=== PATIENT | female | born 1950 | race Caucasian/White ===

== ENCOUNTER 2019-09-11 12:01 | Inpatient (IN) ==
--- NOTE | 2019-09-11 12:37 | Emergency Department Note ---
Impression & Plan V-tach, Synovial cyst of popliteal space [Bailey], right knee, Edema leg, Acute wrist pain ED Provider Note NAME: LUI BLANKENSHIP AGE: 69 SEX: F : 1950 ARRIVES VIA: Walk-In INFORMANT: Patient ED PROVIDER(S): Quentin Arnold DO CHIEF COMPLAINT: Patient was sent in for positive d-dimer HPI: Patient is a 69-year-old female who has recent history of about 6 weeks of pain in her right wrist with swelling. She has had no redness. The swelling has not worsened recently. Pain is fairly consistent. She notes that recently over the past week she has had swelling in her right lower extremity. She has pain behind her right knee. She was evaluated by her PCP and orthopedics. She had a duplex of her left lower extremity which was negative but they found a popliteal cyst. She had blood work although she has had no chest pain or shortness of breath and they obtained a d-dimer. This came back positive. She was sent into the ER with positive d-dimer by her primary care provider Zoey. Patient denies any chest pain or shortness of breath. She has no shortness of breath with laying flat. She has had swelling on the right side of her leg. Pain is worse with movement and putting weight on it in the posterior aspect of her knee. Right hand has been consistently painful since this initially started 6 weeks ago. Denies any trauma. No fevers. No redness. No tick bites. They note she has been tested for Lyme's disease and was negative. She was recently placed on doxycycline yesterday for prophylaxis treatment for Lyme disease. ROS: See above HPI for pertinent positives & negatives. A total of 10 systems reviewed and were otherwise negative. PAST MEDICAL HISTORY:See Below PAST SURGICAL HISTORY:See Below FAMILY HISTORY:See Below SOCIAL HISTORY:See Below HOME MEDICATIONS:See Below ALLERGIES:See Below VITALS:See Below PHYSICAL EXAMINATION: GENERAL: Sitting up in bed, alert, well appearing, well nourished, no distress, non-toxic EYE EXAM: normal conjunctiva. OROPHARYNX: no exudate, no erythema, lips, buccal mucosa, and tongue normal and mucous membranes are moist NECK: supple, no nuchal rigidity, no adenopathy, non-tender LUNGS: Clear to auscultation. Normal chest wall mechanics HEART: no murmurs, S1 normal and S2 normal ABDOMEN: abdomen soft, non-tender, normo-active bowel sounds, no masses, no rebound or guarding. BACK: Back is symmetrical on inspection and there is no deformity, no midline tenderness, no CVA tenderness. SKIN: no rashes and no bruising UPPER EXTREMITIES: Full active and passive range of motion of the shoulders elbows and wrists. She has limited range of motion of the right wrist with tenderness palpation over the palmar and dorsal aspect tracking up into the thumb. There is no surrounding redness. Radial pulse 2 out of 4. Mild swelling over the left second and third MCPs. No redness. LOWER EXTREMITIES: Mild pitting edema in the right lower extremity. Right calf larger than left. Pain on palpation of the popliteal fossa. DPs 2 out of 4. Full active and passive range of motion of bilateral hips knees and ankles. No redness. No prepatellar swelling. NEURO EXAM: Normal sensorium, cranial nerves II-XII grossly intact, normal speech, no gross weakness of arms, no gross weakness of legs. MEDICAL DECISION MAKING: Patient is a 69-year-old female who presents the ER for swelling in her right lower extremity associated with a positive d-dimer sent in by her PCP. She recently has had swelling of the right lower extremity since this past Tuesday. Duplex of the right lower extremity was negative for DVT but positive for popliteal cyst. Followed up with orthopedics. Negative Lyme test x2 in the past month. She is been worked up extensively and has a negative DEMARCUS test and a rheumatoid factor. IV was established blood work was obtained. She denies any chest pain or shortness of breath. Labs show a mild leukocytosis of 1.2 thousand. No significant anemia. INR unremarkable. BMP with LFTs bilirubin and troponin was negative. Lipase was normal. EKG with no acute ischemia. Negative CT Jyoti of the chest with her positive d-dimer as an outpatient. She has no chest pain or shortness of breath. While she was on the monitor she had a short run of VT with [address] Luis Armando Loevtt who recommended admission and echo. Patient was otherwise asymptomatic. Held on any antiarrhythmics. Updated bedside discussed with the hospitalist for admission. Ultrasound was negative with exception of a ruptured popliteal cyst. Lyme was negative x2 this month. Rheumatoid factor was negative. DEMARCUS was negative. Whi te counts have been unchanged. Triage Nursing notes reviewed. Prior medical records reviewed Vital Signs: reviewed and remarkable for no significant abnormalities Differential diagnosis: DVT, musculoskeletal, infection, joint effusion, trauma, lymphedema, idiopathic, CHF, as well as other pathologies. ER treatment provided: See below Diagnostics interpreted by me: ECG: Sinus rhythm rate of 59 Normal axis No PVCs Normal QTC T waves are elevated in V2 V3 T waves are slightly changed in comparison to old performed on of this month. Cardiac Monitoring: An order was placed for continuous cardiac monitoring. The monitor shows a rate of 67 with sinus rhythm. Laboratory studies: As stated above and show below. Imaging studies: CT Angio of the chest was negative. Consultation(s): Discussed with Dr. Luis Armando hardy from cardiology who recommends further evaluation as an inpatient Discussed with Dr. Andria Kumar for observation. ED COURSE: Procedures: none Critical Care: None Past Med/Surg History Medical History (Updated 09/11/19 @ 16:16 by Quentin Arnold DO) No pertinent past medical history Osteoarthritis Osteopenia Surgical History No pertinent past surgical history Social History Smoking Status: Former smoker Tobacco Type: Cigarettes Feels Safe at Home: Yes Allergies Allergies Allergy/AdvReac Type Severity Reaction Status Date / Time No Known Allergies Allergy Unverified 09/11/19 13:00 Home Meds Home Medications Medication Instructions Recorded Confirmed doxycycline monohydrate 100 mg PO BID 09/11/19 09/11/19 Results & Data (ED) Vital Signs Vital Signs - 24 hr 09/11/19 12:08 09/11/19 12:40 09/11/19 12:48 Temperature 37.0 C Temperature Source Oral Pulse Rate 68 63 61 Pulse Rate from SpO2 Sensor 64 61 Respiratory Rate 20 14 13 Respiratory Effort / Characteristics Non-Labored Respiratory Depth Normal Blood Pressure 120/65 126/70 Blood Pressure Mean 83 80 Pulse Oximetry 96 97 96 Oxygen Delivery Method Room Air Room Air Room Air Sepsis Recent Fever Within 48 Hours No Sepsis New/Unexplained Change in Mental Status N/A Sepsis Action Taken by Nursing No Action Required 09/11/19 12:50 09/11/19 13:00 09/11/19 13:01 Temperature Temperature Source Pulse Rate 59 L 62 61 Pulse Rate from SpO2 Sensor 59 L 64 62 Respiratory Rate 13 17 12 Respiratory Effort / Characteristics Respiratory Depth Blood Pressure 127/59 L Blood Pressure Mean 70 Pulse Oximetry 96 97 97 Oxygen Delivery Method Room Air Room Air Room Air Sepsis Recent Fever Within 48 Hours Sepsis New/Unexplained Change in Mental Status Sepsis Action Taken by Nursing 09/11/19 13:10 09/11/19 13:20 09/11/19 13:30 Temperature Temperature Source Pulse Rate 59 L 65 74 Pulse Rate from SpO2 Sensor 61 67 64 Respiratory Rate 16 17 17 Respiratory Effort / Characteristics Respiratory Depth Blood Pressure 144/80 H Blood Pressure Mean 96 Pulse Oximetry 98 97 97 Oxygen Delivery Method Room Air Room Air Room Air Sepsis Recent Fever Within 48 Hours Sepsis New/Unexplained Change in Mental Status Sepsis Action Taken by Nursing 09/11/19 13:31 09/11/19 13:54 09/11/19 14:00 Temperature Temperature Source Pulse Rate 62 131 H 69 Pulse Rate from SpO2 Sensor 62 87 67 Respiratory Rate 17 22 17 Respiratory Effort / Characteristics Respiratory Depth Blood Pressure Blood Pressure Mean Pulse Oximetry 97 96 97 Oxygen Delivery Method Room Air Room Air Room Air Sepsis Recent Fever Within 48 Hours Sepsis New/Unexplained Change in Mental Status Sepsis Action Taken by Nursing 09/11/19 14:01 09/11/19 14:10 09/11/19 14:20 Temperature Temperature Source Pulse Rate 74 66 64 Pulse Rate from SpO2 Sensor 68 64 64 Respiratory Rate 14 23 10 L Respiratory Effort / Characteristics Respiratory Depth Blood Pressure 107/68 Blood Pressure Mean 76 Pulse Oximetry 97 98 97 Oxygen Delivery Method Room Air Room Air Room Air Sepsis Recent Fever Within 48 Hours Sepsis New/Unexplained Change in Mental Status Sepsis Action Taken by Nursing 09/11/19 14:30 09/11/19 14:32 09/11/19 14:33 Temperature Temperature Source Pulse Rate 65 60 Pulse Rate from SpO2 Sensor 61 60 64 Respiratory Rate 19 14 22 Respiratory Effort / Characteristics Respiratory Depth Blood Pressure 154/76 H Blood Pressure Mean 100 Pulse Oximetry 98 98 96 Oxygen Delivery Method Room Air Room Air Room Air Sepsis Recent Fever Within 48 Hours Sepsis New/Unexplained Change in Mental Status Sepsis Action Taken by Nursing 09/11/19 14:40 09/11/19 14:50 09/11/19 15:00 Temperature Temperature Source Pulse Rate 63 63 62 Pulse Rate from SpO2 Sensor 63 64 62 Respiratory Rate 16 12 16 Respiratory Effort / Characteristics Respiratory Depth Blood Pressure Blood Pressure Mean Pulse Oximetry 98 98 98 Oxygen Delivery Method Room Air Room Air Room Air Sepsis Recent Fever Within 48 Hours Sepsis New/Unexplained Change in Mental Status Sepsis Action Taken by Nursing 09/11/19 15:01 09/11/19 15:10 Temperature Temperature Source Pulse Rate 73 62 Pulse Rate from SpO2 Sensor 63 61 Respiratory Rate 18 15 Respiratory Effort / Characteristics Respiratory Depth Blood Pressure 150/53 H Blood Pressure Mean 101 Pulse Oximetry 97 97 Oxygen Delivery Method Room Air Room Air Sepsis Recent Fever Within 48 Hours Sepsis New/Unexplained Change in Mental Status Sepsis Action Taken by Nursing Laboratory Data Result diagrams: 09/11/19 12:38 09/11/19 12:38 Lab Results 09/11/19 09/11/19 09/11/19 Range/Units 12:38 12:38 12:38 WBC 11.24 H (4.8-10.8) K/uL RBC 4.29 (4.2-5.4) M/uL Hgb 12.6 (12.0-16.0) g/dL Hct 37.1 (37-47) % MCV 86.5 (80-100) fL MCH 29.4 (25-34) pg MCHC 34.0 (32-36) g/dL RDW Std Deviation 41.7 (36.4-46.3) fL RDW Coeff of Steffanie 13.2 (11.5-14.5) % Plt Count 287 (130-400) K/uL MPV 8.9 (7.4-10.4) fL Immature Gran % (Auto) 0.2 % Neut % (Auto) 79.4 % Lymph % (Auto) 11.0 % Pacific % (Auto) 9.1 % Eos % (Auto) 0.3 % Baso % (Auto) 0.0 % Neut # (Auto) 8.93 H (1.4-6.5) K/uL Lymph # (Auto) 1.24 (1.2-3.4) K/uL Pacific # (Auto) 1.02 H (0.11-0.59) K/uL Eos # (Auto) 0.03 (0-0.5) K/uL Baso # (Auto) 0.00 (0-0.2) K/uL Immature Gran # (Auto) 0.02 (0.00-0.02) K/uL PT 10.4 (9.0-12.0) Seconds INR 1.0 (0.9-1.1) APTT 28.2 (21.0-31.0) Seconds PTT Ratio 1.0 Sodium 136 (136-145) mmol/L Potassium 4.2 (3.5-5.1) mmol/L Chloride 105 (98-107) mmol/L Carbon Dioxide 23 (21-32) mmol/L Anion Gap 8.0 (3-11) BUN 11 (7-18) mg/dl Creatinine 0.76 (0.6-1.2) mg/dl Est Cr Clr Drug Dosing 73.0 ml/min Est GFR ( Amer) 94.1 Est GFR (Non-Af Amer) 81.2 BUN/Creatinine Ratio 13.8 (10-20) Glucose 101 H (70-99) mg/dl Calcium 9.0 (8.5-10.1) mg/dl Total Bilirubin 0.4 (0.2-1) mg/dl AST 11 L (15-37) U/L ALT 15 (12-78) U/L Alkaline Phosphatase 83 (45-117) U/L Troponin I < 0.015 (0-0.045) ng/ml Total Protein 6.9 (6.4-8.2) gm/dl Albumin 2.7 L (3.4-5.0) gm/dl Globulin 4.2 H (2.5-4.0) gm/dl Albumin/Globulin Ratio 0.6 L (0.9-2) Lipase 70 L (73-393) U/L Administered Medications Ioversol (Optiray 320 125ml) 120 ml IV ONCE PRN PRN Reason: Interaction Checking Stop: 09/15/19 13:43 Last Admin: 09/11/19 13:44 Dose: 120 ml Documented by: [id number] Discontinued Medications Sodium Chloride (Nss) 500 mls @ 999 mls/hr IV .Q31M DARLINE Stop: 09/11/19 13:15 Last Infusion: 09/11/19 13:24 Dose: 0 mls/hr Documented by: [id number] Admin: 09/11/19 12:43 Dose: 999 mls/hr Documented by: [id number] Discharge Plan Visit Data Chief Complaint: Swelling/Edema to Extremity Stated Complaint: SWELLING IN RT LEG,JOINT SWEELING IN WRIST ED Provider: Quentin Arnold Discharge Problem: V-tach, Synovial cyst of popliteal space [Bailey], right knee, Edema leg, Acute wrist pain Forms Stand Alone Forms: [facility] K[facility] Prescriptions Prescriptions: No Action doxycycline monohydrate 100 mg capsule 100 mg PO BID RF: 0 Discharge Problem: Acute wrist pain Qualifiers: Laterality: bilateral Qualified Code(s): M25.531 - Pain in right wrist
[2019-09-11] MEDS ORDERED: SODIUM CHLORIDE 0.9% 500 ML IV SCH (12:45)
[2019-09-11 12:53] LABS: Eosinophils # (auto) 0.03 K/uL (0-0.5); Eosinophils % (auto) 0.3 %; Hematocrit (blood only) 37.1 % (37-47); Hemoglobin 12.6 g/dL (12.0-16.0); Immature Granulocytes # (auto) 0.02 K/uL (0.00-0.02); Immature Granulocytes % (auto) 0.2 %; Lymphocytes # (auto) 1.24 K/uL (1.2-3.4); Mean Corpuscular Hemoglobin 29.4 pg (25-34); Mean Corpuscular Volume 86.5 fL (80-100); Mean Platelet Volume 8.9 fL (7.4-10.4); Monocytes # (auto) 1.02 K/uL (0.11-0.59); Monocytes % (auto) 9.1 %; Neutrophils # (auto) 8.93 K/uL (1.4-6.5); Neutrophils % (auto) 79.4 %; Platelet Count 287 K/uL (130-400); RDW Coefficient of Variation 13.2 % (11.5-14.5); RDW Standard Deviation 41.7 fL (36.4-46.3); Red Blood Count 4.29 M/uL (4.2-5.4); White Blood Count 11.24 K/uL (4.8-10.8)
[2019-09-11 13:10] LABS: Partial Thromboplastin Time 28.2 Seconds (21.0-31.0); Prothrombin Time 10.4 Seconds (9.0-12.0)
[2019-09-11 13:12] LABS: Alanine Aminotransferase 15 U/L (12-78); Albumin Level 2.7 gm/dl (3.4-5.0); Aspartate Aminotransferase 11 U/L (15-37); BUN Creatinine Ratio 13.8 (10-20); Blood Urea Nitrogen 11 mg/dl (7-18); Carbon Dioxide 23 mmol/L (21-32); Chloride 105 mmol/L (98-107); Est GFR (African American) 94.1; Est GFR (Non-African American) 81.2; Glucose 101 mg/dl (70-99); Lipase 70 U/L (73-393); Potassium 4.2 mmol/L (3.5-5.1); Sodium 136 mmol/L (136-145)
[2019-09-11 13:17] LABS: Albumin Globulin Ratio 0.6 (0.9-2); Alkaline Phosphatase 83 U/L (45-117); Bilirubin,Total 0.4 mg/dl (0.2-1); Globulin 4.2 gm/dl (2.5-4.0); Total Protein 6.9 gm/dl (6.4-8.2); Troponin I < 0.015 ng/ml (0-0.045)
[2019-09-11] MEDS ORDERED: OPTIRAY 320 125ml IV PRN (13:44)
--- NOTE | 2019-09-11 13:59 | CT Scan Report ---
CT angio chest PE protocol CT DOSE: 550.30 mGycm HISTORY: 69 years-old Female with Chest Pain, eval for PE. Acute chest pain with shortness of breat h TECHNIQUE: Multiple CTA images of the chest were obtained after the intravenous administration of 120 ml Optiray 320. Coronal and sagittal MIPS were obtained from the axial data set and were submitted for review. All measurements were obtained according to NASCET criteria. A dose lowering technique w as utilized adhering to the principles of ALARA. COMPARISON: Chest radiograph 08/28/2019 FINDINGS: CTA: The heart is normal in size. No pericardial effusion. There is no thoracic aortic aneurysm or dissect ion. Patency of the imaged great vessels. There is reflux of contrast into the IVC and hepatic veins. The pulmonary arterial tree is opacified to the level of the segmental branches and demonstrates no defects to suggest thromboembolic disease. CT CHEST: The thyroid is heterogeneous. Mild enlargement of the left thyroid lobe. There are prominent right ax illary chain lymph nodes measuring up to 1.4 x 0.9 cm. No pathologically enlarged lymph nodes by CT s ize criteria. There is no pneumothorax, pleural effusion, airspace consolidation or overt pulmonary e vik. The central airways appear patent. Small hiatal hernia. Mild thickening of the left adrenal gland. The soft tissues are unremarkable. Roscoe jessica appear intact. IMPRESSION: 1. No acute intrathoracic abnormality, specifically there is no evidence of pulmonary thromboembolic disease. 2. No pleural effusion or airspace consolidation for pneumonia. 3. Nonspecific prominent right axillary lymph nodes measures within the upper limits of normal in siz e. 4. Small hiatal hernia. ACT 112: Negative or not required by law. The above report was generated using voice recognition software. It may contain grammatical, syntax o r spelling errors. Electronically signed by: Spencer Jasmine M.D. 09/11/2019 1:58 PM
--- NOTE | 2019-09-11 15:45 | History & Physical Report ---
Date of Service September 11, 2019 Assessment & Plan (1) V-tach: Noted incidentally to have an 8 beat run of nonsustained asymptomatic V. tach while in the ER for work-up for elevated d-dimer and polyarthralgias. Lyme disease has been negative on titer 2 times the last 2 weeks She has no history of syncope or angina or signs of heart failure on examination. Troponin negative -Admit to PCU for telemetry monitoring to look for further ventricular tachycardia -Consult cardiology for further evaluation -Check echocardiogram -Consider addition of beta-mata as she has had some elevated blood pressures here -Follow BMP and check magnesium and replete electrolytes as needed (2) Cellulitis of leg, right: Right leg with swelling secondary to Bailey's cyst with some secondary cellulitis with open wounds of the right leg This likely accounts for the mild leukocytosis. No evidence of sepsis or fevers. -She just started doxycycline on 09/09 which should also help improve the cellulitis, but could consider adding on Keflex if not improving by tomorrow -Follow CBC (3) Polyarthralgia: With migratory polyarthralgia over the last 2 to 3 weeks of the wrists, hands, and knees and right foot With elevated ESR of 56 last week Rheumatoid factor negative, anti-CCP antibody negative, DEMARCUS negative, Lyme titer negative x2 She has been worked up for this as an outpatient with her PCP-would suggest referral to windows support engineer as an outpatient -Will repeat ESR and CRP here to see if worsening -Encouraged her to use low doses of NSAIDs as needed for pain and inflammation- she has been taking an occasional Advil at home Continue outpatient follow-up (4) Synovial cyst of popliteal space [Bailey], right knee: Seen by orthopedic surgeon as an outpatient on 09/09, diagnosed with Bailey's cyst with rupture Monitor for improvement, was supposed to use compression and icing NSAIDs as needed for pain (5) Edema leg: Secondary to Bailey's cyst rupture as above Compression as able to, elevation -Venous Doppler negative for DVT on 09/09 -Consider repeat venous Doppler of the right lower extremity 2 to 3 days from the first if edema not improving/or worsening (6) Elevated d-dimer: D-dimer elevated in the , likely secondary to underlying inflammatory process with her polyarthralgia Venous Doppler of the right lower extremity negative for DVT, CT angiogram negative for PE, troponin negative and no evidence of angina or clots anywhere else Nonspecific elevation (7) Axillary lymphadenopathy: Noted to have prominent nonspecific right axillary lymph nodes measuring within the upper limits of normal in size on CT angiogram of the chest -Would ensure as an outpatient that she is up-to-date on mammograms and breast exams -Follow as an outpatient (8) DVT prophylaxis: Lovenox SQ Disposition-admit for further evaluation for ventricular tachycardia as above History of Present Illness Chief Complaint: Sent in by PCP for elevated d-dimer Primary Care Provider: Antoni Sparks MD This patient is a 39-year-old female with a history of polyarthralgias for the last several weeks but otherwise healthy who presents to the ER after being advised to by her PCP for an elevated d-dimer. She began having right wrist pain and swelling approximately 2 to 3 weeks ago and since then has had migratory arthralgias and joint effusions in the right knee, left knee, and left wrist. Most recently, her right lower extremity became very swollen from the knee down and was quite tender in the medial calf. She was seen by her PCP and had a venous Doppler on 09/09 which showed a Bailey's cyst with likely leaking of the Bailey's cyst versus hematoma on the medial calf. She was seen same day by orthopedic surgeon who agreed with the assessment and prescribed her meloxicam. She apparently also had a d-dimer drawn which when it returned elevated in the today; she was advised to come to the ER for further assessment. She had a CT angiogram of the chest for PE which was negative. However, while she was here, she was noted to have an 8 beat run of nonsustained ventricular tachycardia which was asymptomatic. Patient reports she gets occasional heart palpitations, but denies chest pains or shortness of breath, no lightheadedness or passing out. She has never had any other problems from a cardiac perspective. 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 Cardiology was contacted by the ER physician who recommended bringing her in and getting an echocardiogram and for further telemetry monitoring. She has been tested for Lyme disease twice now in the last 2 weeks and both titers have been negative, however her PCP also empirically placed her on doxycycline on 09/09 of which she is taken 2 doses. She had a negative anti-CCP antibody as well as a negative rheumatoid factor and negative DEMARCUS in the last 2 weeks. All this work-up was ordered by her PCP. Her WBC count here is mildly elevated at 11 and she was also found to have a mild cellulitis of the right leg. ROS: She has not had any fevers or chills, no headaches, no nausea or vomiting or diarrhea, no abdominal pain. No urinary symptoms. She has been more fatigued t [place] usual. She had some neck pain 2 weeks ago which is now gone. Denies any other joint pains in the shoulders, elbows, hips, ankles or toes. Allergies Allergy/AdvReac Type Severity Reaction Status Date / Time No Known Allergies Allergy Unverified 09/11/19 13:00 Home Medications Home Medications Medication Instructions Recorded Confirmed Type doxycycline monohydrate 100 mg PO BID 09/11/19 09/11/19 History Past Med/Surg History Medical History No pertinent past medical history Obesity (BMI 30.0-34.9) Osteoarthritis Osteopenia Polyarthralgia (Acute) Synovial cyst of popliteal space [Bailey], right knee (Acute) Surgical History History of appendectomy History of section History of colonoscopy History of tooth extraction Family History (Updated 09/11/19 @ 16:35 by Andria Kumar MD) Mother Colorectal cancer, Onset Age: 59 Sister PAOLO (obstructive sleep apnea) Social History Smoking Status: Former smoker Tobacco Type: Cigarettes Age Quit Using Tobacco: 27; Years Smoked: 8; Cigarettes Per Day: 5; Hx Alcohol Use: No Hx Substance Use: No marital status: Current Living Situation: Spouse current occupational status: retired How many Children do You have: 2 Feels Safe at Home: Yes Review of Systems Review of Systems: All systems reviewed & are unremarkable except as noted in HPI & below Physical Exam Constitutional: WD/WN, vitals as above + overweight Eyes: PERRL, conjunctivae normal, anicteric sclerae ENMT: external ear and nose normal, oropharynx normal Neck: trachea midline, no thyromegaly Respiratory: normal respiratory effort, lungs clear to auscultation Cardiovascular: Rate/Rhythm: regular rate and regular rhythm Heart Sounds: no murmur Vessels: no JVD Extremities: + edema (Right leg with 2+ pitting edema to the knee) Chest (Breasts): Chest: normal inspection of chest Gastrointestinal (Abdomen): normal bowel sounds, soft, nontender, no hepatosplenomegaly Musculoskeletal: Extremities: + extremities abnormal to inspection (See below), no cyanosis and no clubbing Left wrist with effusion and left second and third MCP joints with effusion and mild erythema, with stiffness in the bilateral fingers with trying to form a fist. Right wrist no longer with effusion but still with pain and stiffness with range of motion Right knee and leg with significant edema and tenderness to palpation along the medial calf with bilateral small knee joint effusions Right foot and toes with edema but no sausage digits Otherwise, no tenderness to palpation and with full range of motion of bilateral shoulders and elbows, hips, and ankles Skin: + wound (A few superficial open wounds of the right anterior mid tibia) and + erythema (Mild erythema of the anterior right leg with warmth) Neurologic: moves all extremities and awake; no focal motor deficits Psychiatric: A+Ox3, euthymic affect Lymphatic: no lymphedema Results & Data Results & Data ([facility]) Vital Signs (Past 12 Hours) Vital Signs Temp Pulse Resp BP Pulse Ox 09/11/19 15:10 62 15 97 09/11/19 15:01 73 18 150/53 H 97 09/11/19 15:00 62 16 98 09/11/19 14:50 63 12 98 09/11/19 14:40 63 16 98 09/11/19 14:33 22 96 09/11/19 14:32 60 14 154/76 H 98 09/11/19 14:30 65 19 98 09/11/19 14:20 64 10 L 97 09/11/19 14:10 66 23 98 09/11/19 14:01 74 14 107/68 97 09/11/19 14:00 69 17 97 09/11/19 13:54 131 H 22 96 09/11/19 13:31 62 17 97 09/11/19 13:30 74 17 144/80 H 97 09/11/19 13:20 65 17 97 09/11/19 13:10 59 L 16 98 09/11/19 13:01 61 12 97 09/11/19 13:00 62 17 127/59 L 97 09/11/19 12:50 59 L 13 96 09/11/19 12:48 61 13 96 09/11/19 12:40 63 14 126/70 97 09/11/19 12:08 37.0 C 68 20 120/65 96 Laboratory Results 09/11/19 09/11/19 09/11/19 Range/Units 12:38 12:38 12:38 WBC 11.24 H (4.8-10.8) K/uL RBC 4.29 (4.2-5.4) M/uL Hgb 12.6 (12.0-16.0) g/dL Hct 37.1 (37-47) % MCV 86.5 (80-100) fL MCH 29.4 (25-34) pg MCHC 34.0 (32-36) g/dL RDW Std Deviation 41.7 (36.4-46.3) fL RDW Coeff of Steffanie 13.2 (11.5-14.5) % Plt Count 287 (130-400) K/uL MPV 8.9 (7.4-10.4) fL Immature Gran % (Auto) 0.2 % Neut % (Auto) 79.4 % Lymph % (Auto) 11.0 % [place] % (Auto) 9.1 % Eos % (Auto) 0.3 % Baso % (Auto) 0.0 % Neut # (Auto) 8.93 H (1.4-6.5) K/uL Lymph # (Auto) 1.24 (1.2-3.4) K/uL [place] # (Auto) 1.02 H (0.11-0.59) K/uL Eos # (Auto) 0.03 (0-0.5) K/uL Baso # (Auto) 0.00 (0-0.2) K/uL Immature Gran # (Auto) 0.02 (0.00-0.02) K/uL PT 10.4 (9.0-12.0) Seconds INR 1.0 (0.9-1.1) APTT 28.2 (21.0-31.0) Seconds PTT Ratio 1.0 Sodium 136 (136-145) mmol/L Potassium 4.2 (3.5-5.1) mmol/L Chloride 105 (98-107) mmol/L Carbon Dioxide 23 (21-32) mmol/L Anion Gap 8.0 (3-11) BUN 11 (7-18) mg/dl Creatinine 0.76 (0.6-1.2) mg/dl Est Cr Clr Drug Dosing 73.0 ml/min Est GFR ( Amer) 94.1 Est GFR (Non-Af Amer) 81.2 BUN/Creatinine Ratio 13.8 (10-20) Glucose 101 H (70-99) mg/dl Calcium 9.0 (8.5-10.1) mg/dl Total Bilirubin 0.4 (0.2-1) mg/dl AST 11 L (15-37) U/L ALT 15 (12-78) U/L Alkaline Phosphatase 83 (45-117) U/L Troponin I < 0.015 (0-0.045) ng/ml Total Protein 6.9 (6.4-8.2) gm/dl Albumin 2.7 L (3.4-5.0) gm/dl Globulin 4.2 H (2.5-4.0) gm/dl Albumin/Globulin Ratio 0.6 L (0.9-2) Lipase 70 L (73-393) U/L Diagnostic Findings CT angio chest PE protocol CT DOSE: 550.30 mGycm HISTORY: 69 years-old Female with Chest Pain, eval for PE. Acute chest pain with shortness of breath TECHNIQUE: Multiple CTA images of the chest were obtained after the intravenous administration of 120 ml Optiray 320. Coronal and sagittal MIPS were obtained from the axial data set and were submitted for review. All measurements were obtained according to NASCET criteria. A dose lowering technique was utilized adhering to the principles of ALARA. COMPARISON: Chest radiograph 08/28/2019 FINDINGS: CTA: The heart is normal in size. No pericardial effusion. There is no thoracic aortic aneurysm or dissection. Patency of the imaged great vessels. There is reflux of contrast into the IVC and hepatic veins. The pulmonary arterial tree is opacified to the level of the segmental branches and demonstrates no defects to suggest thromboembolic disease. CT CHEST: The thyroid is heterogeneous. Mild enlargement of the left thyroid lobe. There are prominent right axillary chain lymph nodes measuring up to 1.4 x 0.9 cm. No pathologically enlarged lymph nodes by CT size criteria. There is no pneumothorax, pleural effusion, airspace consolidation or overt pulmonary edema. The central airways appear patent. Small hiatal hernia. Mild thickening of the left adrenal gland. The soft tissues are unremarkable. Bones appear intact. IMPRESSION: 1. No acute intrathoracic abnormality, specifically there is no evidence of pulmonary thromboembolic disease. 2. No pleural effusion or airspace consolidation for pneumonia. 3. Nonspecific prominent right axillary lymph nodes measures within the upper limits of normal in size. 4. Small hiatal hernia. ECG Additional Comments: ECG with sinus bradycardia, rate 59, no acute ischemic changes Code Status & VTE Plan Code Status Full code VTE Prophylaxis Plan VTE Prophylaxis will be ordered: Yes PG Care Time/CCT Total # of Minutes Spent Total Time Spent with Patient: Total time spent is greater than 50% in coordination of care (as documented) at patient's floor/unit and/or counseling patient: Coding Level of Care Code 53817 Initial Inpt Care Lvl 3 Diagnoses V-tach I47.2 Cellulitis of leg, right L03.115 Polyarthralgia M25.50 Synovial cyst of popliteal space [Bailey], right knee M71.21 Edema leg R60.0 Elevated d-dimer R79.89 Axillary lymphadenopathy R59.0 DVT prophylaxis Z29.9
[2019-09-11 16:47] LABS: C Reactive Protein 9.44 mg/dl (0-0.29); Magnesium 2.1 mg/dl (1.8-2.4)
[2019-09-11] MEDS ORDERED: ACETAMINOPHEN 325 MG TAB PO PRN (17:32)
[2019-09-11] MEDS ORDERED: IBUPROFEN 200 MG TAB PO PRN (17:32)
[2019-09-11] MEDS: DOXYCYCLINE HYCLATE 100 MG CAP PO SCH (20:07)
[2019-09-11] MEDS ORDERED: ENOXAPARIN INJ 40 MG/0.4 ML SYR SQ SCH (21:00)
[2019-09-12 07:26] LABS: Basophils # (auto) 0.01 K/uL (0-0.2); Basophils % (auto) 0.1 %; Eosinophils % (auto) 1.2 %; Hematocrit (blood only) 35.5 % (37-47); Immature Granulocytes # (auto) 0.02 K/uL (0.00-0.02); Immature Granulocytes % (auto) 0.2 %; Lymphocytes # (auto) 1.37 K/uL (1.2-3.4); Lymphocytes % (auto) 16.3 %; Mean Corpuscular Hemoglobin 29.3 pg (25-34); Mean Corpuscular Hgb Conc 33.8 g/dL (32-36); Mean Corpuscular Volume 86.8 fL (80-100); Mean Platelet Volume 8.9 fL (7.4-10.4); Monocytes % (auto) 9.5 %; Neutrophils # (auto) 6.11 K/uL (1.4-6.5); Neutrophils % (auto) 72.7 %; Platelet Count 290 K/uL (130-400); RDW Standard Deviation 41.8 fL (36.4-46.3); Red Blood Count 4.09 M/uL (4.2-5.4); White Blood Count 8.41 K/uL (4.8-10.8)
[2019-09-12 07:56] LABS: Albumin Level 2.4 gm/dl (3.4-5.0); BUN Creatinine Ratio 14.5 (10-20); Calcium 8.7 mg/dl (8.5-10.1); Creatinine Clr Calc Pharmacy 74.9 ml/min; Est GFR (African American) 97.2; Est GFR (Non-African American) 83.8; Magnesium 2.1 mg/dl (1.8-2.4); Potassium 4.3 mmol/L (3.5-5.1)
[2019-09-12 07:59] LABS: Albumin Globulin Ratio 0.6 (0.9-2); Bilirubin,Total 0.4 mg/dl (0.2-1); Globulin 4.2 gm/dl (2.5-4.0); Total Protein 6.6 gm/dl (6.4-8.2)
[2019-09-12] MEDS: DOXYCYCLINE HYCLATE 100 MG CAP PO SCH (08:04)
--- NOTE | 2019-09-12 09:51 | Hospitalist Progress Note ---
Date of Service September 12, 2019 Assessment & Plan Admission and Anticipated Discharge Date Admission Date: September 11, 2019 Subjective Hx: 69 y/o F w/ no relev pmhx other than polyarthralgias last several weeks. ed told her to come in for elv d dimer. bailey cyst vs hematoma on venous doppler per pcp tested for lyme twice last 2 weeks neg Cc: vtach. Leg swelling Subj: feels fine. Multiarthralgia sx for 1 month. No hx prior Leg swelling started last . started w/ r wrist swelling. Moved to other spots in ther body. Last noted RLE started Did blood work for lyme and tick borne disease. Checked for blood. Gout was neg Cta neg Ranjit hx of any of those All ros neg. Appendix out 2 c sections Bailey cyst r popliteal fossa. Popped over wekend. R woods cellulitis appeared a day or 2 ago. Physical exam Heart lungs ok. No murmurs. Pulses ok No lad neck or axillary No abd ttp No L leg swelling R woods large area of erythema. Visibly swollen Pt says painful near R medial calf. Denies pe risk factors. he had a negative anti-CCP antibody as well as a negative rheumatoid factor and negative DEMARCUS in the last 2 weeks. All this work- up was ordered by her PCP. a/p axillary lad R on CT. outpt f/y edema of R leg elevated d dimer bailey cyst r knee. saw ortho out pt 09/09 polyarthralgia. repear esr crp. vtach. 8 bear nonsustained. no hx syndope or hx heart failure cardio consult and echo cellulitis Results & Data Results & Data ([facility]) Vital Signs (Past 12 Hours) Vital Signs Temp Pulse Pulse Resp BP Pulse Ox 09/12/19 07:18 36.5 C 71 16 124/62 95 09/12/19 03:46 36.8 C 67 20 124/64 97 09/12/19 00:00 67 09/11/19 23:19 37.0 C 79 17 125/57 L 94
--- NOTE | 2019-09-12 11:06 | XCELERA ---
[id number]
--- NOTE | 2019-09-12 11:24 | Cardiology Consultation ---
Date of Consultation September 12, 2019 Assessment & Plan (1) V-tach: She was incidentally noted to have a 7-8 beat run of nonsustained ventricular tachycardia in the ER. The telemetry strips are not currently available for review. Since her admission, she has been in normal sinus rhythm with no arrhythmia identified on telemetry. She is completely asymptomatic from a cardiovascular standpoint. Her echocardiogram shows normal LV systolic function with no significant valvular abnormality. Her electrolytes are within normal limits. No additional cardiovascular testing is indicated in this regard. If she were to need an antihypertensive agent for blood pressure control, would utilize a beta mata given the nonsustained VT. Patient discussed with Dr. Valdez. History of Present Illness Reason for Consultation: Nonsustained VT Requesting Physician: Dr. Kumar History of Present Illness Patient is a 69-year-old female with no significant past medical history who was admitted with a brief run of nonsustained ventricular tachycardia. She has been having right wrist pain and edema since late July. She then deve loped right calf pain and edema last week. She was seen by her PCP for these complaints and was ordered a right lower extremity venous duplex, which showed no evidence of a DVT, but there was a Bailey's cyst with a hypoechoic mildly complex collection consistent with leaking Bailey's cyst vs hematoma. Labs were also ordered, including an elevated d-dimer of 2560. Given the elevation of the d-dimer, it was recommended she go to the ED for further evaluation. A chest CTA was performed which showed no evidence of PE. While she was being monitored in the ER, she was noted to have a 7-8 beat run of nonsustained ventricular tachycardia. She was asymptomatic with this, but it was recommended she be admitted for further evaluation. An echocardiogram was performed earlier today, which showed normal LV size, wall motion, and systolic function with no significant valvular abnormality. Electrolytes have also been normal. She continues to note some pain/swelling in her right wrist and right calf. She now also notes some swelling and pain in her left hand/wrist. From a cardiac standpoint, she has been feeling well. She denies any chest discomfort or shortness of breath. She has not noted any palpitations. She denies lightheadedness, syncope, or near-syncope. She denies abnormal bleeding such as melena, hematochezia, or hematuria. She denies cerebrovascular symptoms. She remains fairly active doing housework and grocery shopping. She has stairs in her home which she ambulates up and down regularly with no limiting cardiopulmonary symptoms. Family history: No family history of premature CAD. Social history: She is with 2 children and 2 grandchildren. No smoking or alcohol use. Allergies Allergy/AdvReac Type Severity Reaction Status Date / Time No Known Allergies Allergy Unverified 09/11/19 13:00 Home Medications Home Medications Medication Instructions Recorded Confirmed Type doxycycline monohydrate 100 mg PO BID 09/11/19 09/11/19 History Patient History Medical History No pertinent past medical history Obesity (BMI 30.0-34.9) Osteoarthritis Osteopenia Polyarthralgia (Acute) Synovial cyst of popliteal space [Bailey], right knee (Acute) Surgical History History of appendectomy History of section History of colonoscopy History of tooth extraction Family History (Updated 09/11/19 @ 16:35 by Andria Kumar MD) Mother Colorectal cancer, Onset Age: 59 Sister PAOLO (obstructive sleep apnea) Social History Smoking Status: Never smoker Tobacco Type: Cigarettes Age Quit Using Tobacco: 27; Years Smoked: 8; Cigarettes Per Day: 5; Hx Alcohol Use: No Hx Substance Use: No Preferred Language: [place] Citizen Personnel Placement Specialist Required: No Beliefs That Will Affect Care: None marital status: Current Living Situation: Spouse current occupational status: retired How many Children do You have: 2 Other Information That Helps Us Care for You: No Feels Safe at Home: Yes Safety Concerns: Feels Safe At This Time Review of Systems Review of Systems: All systems reviewed & are unremarkable except as noted in Subjective Physical Exam Physical Exam: Constitutional: Alert, oriented, in no acute distress HEENT: Head is atraumatic and normocephalic. EOMs intact. Sclera non-icteric. Face is symmetric. No perioral cyanosis. Mucous membranes moist Neck: Supple, no JVD, no carotid bruits Pulmonary: Normal respiratory effort, clear to auscultation throughout Cardiac: Regular rate and rhythm, normal S1 and S2, no gallops, no rubs, no murmurs Extremities: No edema. No clubbing or cyanosis. Pulses 2+ and symmetric Abdomen: Normal bowel sounds, soft, non-tender, no abdominal masses palpated Skin: Normal skin color, turgor, and pigmentation. No rash or skin lesions Neurological: Oriented to person, place, and time Results & Data ([facility]) Vital Signs (Past 12 Hours) Vital Signs Temp Pulse Pulse Resp BP Pulse Ox 09/12/19 07:18 97.7 F 71 16 124/62 95 09/12/19 03:46 98.2 F 67 20 124/64 97 09/12/19 00:00 67 09/11/19 23:19 98.6 F 79 17 125/57 L 94 Laboratory Results Laboratory Results WBC 8.41 K/uL (4.8-10.8) 09/12/19 07:01 RBC 4.09 M/uL (4.2-5.4) L 09/12/19 07:01 Hgb 12.0 g/dL (12.0-16.0) 09/12/19 07:01 Hct 35.5 % (37-47) L 09/12/19 07:01 MCV 86.8 fL (80-100) 09/12/19 07:01 MCH 29.3 pg (25-34) 09/12/19 07:01 MCHC 33.8 g/dL (32-36) 09/12/19 07:01 RDW Std Deviation 41.8 fL (36.4-46.3) 09/12/19 07:01 RDW Coeff of Steffanie 13.0 % (11.5-14.5) 09/12/19 07:01 Plt Count 290 K/uL (130-400) 09/12/19 07:01 MPV 8.9 fL (7.4-10.4) 09/12/19 07:01 Immature Gran % (Auto) 0.2 % 09/12/19 07:01 Neut % (Auto) 72.7 % 09/12/19 07:01 Lymph % (Auto) 16.3 % 09/12/19 07:01 [place] % (Auto) 9.5 % 09/12/19 07:01 Eos % (Auto) 1.2 % 09/12/19 07:01 Baso % (Auto) 0.1 % 09/12/19 07:01 Neut # (Auto) 6.11 K/uL (1.4-6.5) 09/12/19 07:01 Lymph # (Auto) 1.37 K/uL (1.2-3.4) 09/12/19 07:01 [place] # (Auto) 0.80 K/uL (0.11-0.59) H 09/12/19 07:01 Eos # (Auto) 0.10 K/uL (0-0.5) 09/12/19 07:01 Baso # (Auto) 0.01 K/uL (0-0.2) 09/12/19 07:01 Immature Gran # (Auto) 0.02 K/uL (0.00-0.02) 09/12/19 07:01 ESR 67 mm/hr (0-21) H 09/11/19 12:38 PT 10.4 Seconds (9.0-12.0) 09/11/19 12:38 INR 1.0 (0.9-1.1) 09/11/19 12:38 APTT 28.2 Seconds (21.0-31.0) 09/11/19 12:38 PTT Ratio 1.0 09/11/19 12:38 Sodium 139 mmol/L (136-145) 09/12/19 07:01 Potassium 4.3 mmol/L (3.5-5.1) 09/12/19 07:01 Chloride 108 mmol/L (98-107) H 09/12/19 07:01 Carbon Dioxide 25 mmol/L (21-32) 09/12/19 07:01 Anion Gap 6.0 (3-11) 09/12/19 07:01 BUN 11 mg/dl (7-18) 09/12/19 07:01 Creatinine 0.74 mg/dl (0.6-1.2) 09/12/19 07:01 Est Cr Clr Drug Dosing 74.9 ml/min 09/12/19 07:01 Est GFR ( Amer) 97.2 09/12/19 07:01 Est GFR (Non-Af Amer) 83.8 09/12/19 07:01 BUN/Creatinine Ratio 14.5 (10-20) 09/12/19 07:01 Glucose 96 mg/dl (70-99) 09/12/19 07:01 Calcium 8.7 mg/dl (8.5-10.1) 09/12/19 07:01 Magnesium 2.1 mg/dl (1.8-2.4) 09/12/19 07:01 Total Bilirubin 0.4 mg/dl (0.2-1) 09/12/19 07:01 AST 11 U/L (15-37) L 09/12/19 07:01 ALT 14 U/L (12-78) 09/12/19 07:01 Alkaline Phosphatase 75 U/L (45-117) 09/12/19 07:01 Troponin I < 0.015 ng/ml (0-0.045) 09/11/19 12:38 C-Reactive Protein 9.44 mg/dl (0-0.29) H 09/11/19 12:38 Total Protein 6.6 gm/dl (6.4-8.2) 09/12/19 07:01 Albumin 2.4 gm/dl (3.4-5.0) L 09/12/19 07:01 Globulin 4.2 gm/dl (2.5-4.0) H 09/12/19 07:01 Albumin/Globulin Ratio 0.6 (0.9-2) L 09/12/19 07:01 Lipase 70 U/L (73-393) L 09/11/19 12:38 Diagnostic Findings EKGs reviewed and show sinus bradycardia. No acute ST-T wave abnormality. Echo: Normal LV size, wall motion and systolic function. No significant valvular abnormality. Telemetry: Sinus in the 60s-70s. No arrhythmia. PG Care Time/CCT Total # of Minutes Spent Total Time Spent with Patient: Total time spent is greater than 50% in coordination of care (as documented) at patient's floor/unit and/or counseling patient: Coding Level of Care Code 78473 Initial Inpt Care Lvl 3 Diagnoses V-tach I47.2
--- NOTE | 2019-09-12 12:42 | Discharge Summary ---
Date of Service September 12, 2019 Admission HPI Per Admitting Provider This patient is a 39-year-old female with a history of polyarthralgias for the last several weeks but otherwise healthy who presents to the ER after being advised to by her PCP for an elevated d-dimer. She began having right wrist pain and swelling approximately 2 to 3 weeks ago and since then has had migratory arthralgias and joint effusions in the right knee, left knee, and left wrist. Most recently, her right lower extremity became very swollen from the knee down and was quite tender in the medial calf. She was seen by her PCP and had a venous Doppler on 09/09 which showed a Bailey's cyst with likely leaking of the Bailey's cyst versus hematoma on the medial calf. She was seen same day by orthopedic surgeon who agreed with the assessment and prescribed her meloxicam. She apparently also had a d-dimer drawn which when it returned elevated in the today; she was advised to come to the ER for further assessment. She had a CT angiogram of the chest for PE which was negative. However, while she was here, she was noted to have an 8 beat run of nonsustained ventricular tachycardia which was asymptomatic. Patient reports she gets occasional heart palpitations, but denies chest pains or shortness of breath, no lightheadedness or passing out. She has never had any other problems from a cardiac perspective. 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 Cardiology was contacted by the ER physician who recommended bringing her in and getting an echocardiogram and for further telemetry monitoring. She has been tested for Lyme disease twice now in the last 2 weeks and both titers have been negative, however her PCP also empirically placed her on doxycycline on 09/09 of which she is taken 2 doses. She had a negative anti-CCP antibody as well as a negative rheumatoid factor and negative DEMARCUS in the last 2 weeks. All this work-up was ordered by her PCP. Her WBC count here is mildly elevated at 11 and she was also found to have a mild cellulitis of the right leg. ROS: She has not had any fevers or chills, no headaches, no nausea or vomiting or diarrhea, no abdominal pain. No urinary symptoms. She has been more fatigued than usual. She had some neck pain 2 weeks ago which is now gone. Denies any other joint pains in the shoulders, elbows, hips, ankles or toes. Admission Exam Per Admitting Provider Constitutional: WD/WN, vitals as above + overweight Eyes: PERRL, conjunctivae normal, anicteric sclerae ENMT: external ear and nose normal, oropharynx normal Neck: trachea midline, no thyromegaly Respiratory: normal respiratory effort, lungs clear to auscultation Cardiovascular: Rate/Rhythm: regular rate and regular rhythm Heart Sounds: no murmur Vessels: no JVD Extremities: + edema (Right leg with 2+ pitting edema to the knee) Chest (Breasts): Chest: normal inspection of chest Gastrointestinal (Abdomen): normal bowel sounds, soft, nontender, no hepatosplenomegaly Musculoskeletal: Extremities: + extremities abnormal to inspection (See below), no cyanosis and no clubbing Left wrist with effusion and left second and third MCP joints with effusion and mild erythema, with stiffness in the bilateral fingers with trying to form a fist. Right wrist no longer with effusion but still with pain and stiffness with range of motion Right knee and leg with significant edema and tenderness to palpation along the medial calf with bilateral small knee joint effusions Right foot and toes with edema but no sausage digits Otherwise, no tenderness to palpation and with full range of motion of bilateral shoulders and elbows, hips, and ankles Skin: + wound (A few superficial open wounds of the right anterior mid tibia) and + erythema (Mild erythema of the anterior right leg with warmth) Neurologic: moves all extremities and awake; no focal motor deficits Psychiatric: A+Ox3, euthymic affect Lymphatic: no lymphedema Principal Diagnosis Right lower extremity swelling and cellulitis Discharge Exam General: A&Ox3. NAD. Cooperative. HEENT: Atraumatic, normocephalic. Pulm: CTAB A&P. -wheezes, -rales, -rhonchi. Symmetrical chest rise. No increase work of breathing. No respiratory distress. Cardiac: RRR, -mrg. Radial pulses intact and symmetrical. Abdominal: Nontender, nondistended, soft. BS present. Extremity: Pitting edema in the right lower extremity through the knee. Nontender to palpation. Circled area on prior erythema, greatly improved and near normal color per patient today. Small superficial abrasion overlying circled area of cellulitis, no pus or bleeding at time of exam. Left lower extremity nontender, non-cellulitic, no edema. Sensation intact in toes bilaterally, PT pulse intact bilaterally. Discharge Data Allergies Allergy/AdvReac Type Severity Reaction Status Date / Time No Known Allergies Allergy Unverified 09/11/19 13:00 Consultations 09/11/19 14:49 ED Decision to Admit Stat 09/11/19 17:32 Consult Cardiology Routine Ordered Studies 09/11/19 12:33 CT angio chest PE protocol Stat Hospital Course (1) Cellulitis of leg, right: Tess Phipps is a 69-year-old female with a past medical history of Bailey's cyst and migratory polyarthralgia who presented for concerns of right lower extremity cellulitis and who was admitted after nonsustained V. tach was noted while in the emergency department. To do as outpatient: 1. Follow-up with orthopedics for Bailey's cyst management, clinically follow lower extremity swelling for improvement with ruptured cyst treatment 2. Complete 5 days of Keflex therapy for cellulitis 3. CRP/ESR in approximately 1 week 4. Follow-up for recommended mammogram screening, and serial exams of incidental axillary adenopathy as noted below Cellulitis of the right lower extremity Tess reported that her swelling in her right lower extremity began approximately 6 weeks prior to admission and had been tight and painful with the most pain behind the knee. On admission there was an area of mild erythema/hyperpigmentation which was circled. Patient was placed on empiric doxycycline as there was concern for tickborne exposure/Lyme disease preceding her presentation. Her Lyme titers were negative, but her leg improved with normalization of the skin color and no extension of erythema to or beyond the m arked borders. She was converted to Keflex for uncomplicated cellulitis, clinically improving without sepsis or leukocytosis and discharged to complete a total 5-day course. Right lower extremity edema with ruptured right knee Bailey's cyst Since he had several weeks of right lower extremity swelling as noted above. She had prior evaluation and imaging with orthopedics which had been consistent with a ruptured Bailey's cyst at onset of her symptoms. She did not show signs of chronic venous stasis changes. She had an elevated d-dimer, but did not have any signs of thromboembolic disease on CTPE protocol and did not have any signs of DVT in her leg on a prior Doppler. Differential included autoimmune disease, further discussed below, and potential venous occlusive disease due to the rup tured Bailey's cyst causing some compression at the popliteal veins. She remained neurovascularly intact, and after DVT/PE was ruled out she was treated with NSAIDs and compressive dressing. She was clinically stable and improving was discharged to follow-up with her PCP and orthopedics for further Bailey's cyst management. Ventricular tachycardia, nonsustained, first episode While in the emergency department for the above she was observed to have an 8 beat run of nonsustained asymptomatic ventricular tachycardia. She did not have prior history of arrhythmia or cardiac disease. Her d-dimer was elevated but subsequent CTPE protocol was negative. She did not have any history of syncope or heart failure, and she did not have any symptoms during her run of ventricular tachycardia. Her troponin remained negative, and she had normal sinus rhythm on EKG following this episode. She had an echocardiogram which showed normal ventricular function and a normal ejection fraction. Cardiology was consulted, and given her single asymptomatic episode which was nonsustained in nature did not recommend any pharmacotherapy or ICD/LifeVest precautions. She is not hypertensive at baseline and not on home hypertensive medications, if she requires antihypertensives in the future she may get some cross benefit from choosing metoprolol or similar beta-mata at that time. She does not need ro utine follow-up with cardiology at this time, but if she becomes symptomatic should be seen for reevaluation. 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 She reports that she had had some symptoms in her knees, and had a flare of swelling in her left second knuckle of which some was still present. She notes that there was swelling, but not overlying redness/warmth/erythema and that there was some mild discomfort/joint pain at the sites of swelling. In addition to her d-dimer as noted above she had an elevated ESR of 56 as an outpatient. Repeat sed rate was in the 60s on admission, follow-up rheumatoid factor, CCP, Lyme titers, and DEMARCUS were negative during admission. She was clinically stable and improving during admission. She was discharged to follow-up with a repeat CRP and ESR in approximately 1 week with follow-up to her PCP for further management based on results. Axillary lymphadenopathy On her CTPE protocol she was noted to have nonspecific right axillary lymph chain enlargement within the upper limits of normal. It was recommended that she be followed clinically as an outpatient with serial exams, and to follow with recommended mammograms. Her last mammogram results were not able to be obtained while inpatient. She was told to discuss this further with her primary care provider at her follow-up appointment. DVT prophylaxis Tess was maintained on Lovenox for DVT prophylaxis. She had evaluation for DVT as above due to her elevated d-dimer and leg swelling, but did not show any DVT on Doppler and no PE on her CTPE protocol. 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], right knee: (5) V-tach: (6) Edema leg: (7) Osteopenia: (8) Osteoarthritis: Total Time Total Time Spent Total Time Spent (In Minutes): See attending documentation Discharge Plan Discharge Items Patient Disposition: Home - Self-Care Reason For Visit: VENTRICULAR TACHYCARDIA Discharge Diagnosis: Cellulitis, nonsustained ventricular tachycardia Activity: Per Instructions section Non-emergency contact: Primary Care Provider and Gardening Instructor Call non-emergency contact if: you have any medication questions, your symptoms worsen, your pain is not controlled, your pain is worsening, your pain is unusual for you, your pain is concerning for you, you have a fever and your wound has increased drainage Follow-up/Referrals: Eliel Valdez MD [Physician] - 09/26/19 1:00 pm (PLEASE ARRIVE AT LEAST 15 MINUTES BEFORE SCHEDULED APPOINTMENT TIME) Antoni Sparks MD [Primary Care Provider] - 09/14/19 1:45 pm (PLEASE ARRIVE 10 MINUTES BEFORE SCHEDULED APPOINTMENT TIME) Diet: Regular Addtl Attending Provider Instructions: You were seen in the hospital for cellulitis, and were admitted for observation after you were noted to have an abnormal heart rhythm called nonsustained ventricular tachycardia. You have been treated with antibiotics with improvement. Your leg swelling was thought to be related to pressure from a ruptured Bailey's cyst. You have had other swelling y in your extremities intermittently in the past. You had some markers of inflammation that were elevated, but your markers for rheumatoid and autoimmune disease were negative. You should have follow-up blood work performed as an outpatient, your primary care physician will order and discuss these labs with you further. Your heart rhythm remained otherwise normal after admission to the hospital, and a ultrasound of your heart did not show any concerning findings. Imaging did not show any sign of a blood clot in your legs or lungs during admission. You have been discharged to follow-up with your primary care physician. You have been prescribed an antibiotic, Keflex. Please take Keflex 500 mg 4 times daily (approximately every 6 hours) for 5 days. If you develop any rash, signs of allergy including wheezing, difficulty breathing, lip or tongue swelling, or other concerning symptoms please contact your primary care provider regarding this medication or call 911 for evaluation in the emergency department if you are very concerned. This medication can cause some loose stools/diarrhea. Taking an [id number]-[id number] probiotic with this medication may help. A followup appointment is being scheduled for you with Dr. Sparks. You should be seen seen within 1 week. You should receive a call to confirm this appointment. If you do not receive a call within 48 hours to confirm this appointment, or need to change this appointment, please call the provider's office at [phone]. You have an appointment with your doctor for further evaluation and treatment for your Bailey's cyst and potential knee injection. Please keep this appointment as was already scheduled for you. If you develop any new or worsening symptoms including fever, chills, sweats, chest pain, chest pressure, difficulty breathing, uncontrolled nausea/vomiting, rash, wheezing, passing out or nearly passing out, bleeding, black/bloody bowel movements, or other new or concerning symptoms please call your primary care physician, or call 911 for re-evaluation in the emergency department if you are very concerned. Pending Studies at Discharge: Yes Studies:: Follow-up CRP/ESR/d-dimer trend as outpatient Stand-Alone Forms: [facility], Smoking Cessation Medications and DC Order Prescriptions: New cephalexin 500 mg Capsule 500 mg PO QID 5 Days Qty: 20 RF: 0 Discontinued doxycycline monohydrate 100 mg capsule 100 mg PO BID RF: 0 Discharge Orders: Discharge Order (Routine); Ordered 09/12/19 Ordered By: Guille Garcia/Other Patient Handouts: Cephalexin tablets or capsules Admission Data Admit Date/Time: 09/11/19 16:23 Attending Provider: Krysten Mullins Admit Provider: Andria Kumar Primary Care Provider: Antoni Sparks Other Providers: Andria Kumar ; Eliel Valdez Other Interventions: Discharge Summary Assessment (RN) Last Done: 09/12/19 12:28 DC Date/Time DO NOT enter until pt leaves facility: 09/12/19 13:45 Supervising Physician Co-Signing Physician Notes Resident Physician Supervision Note: I independently interviewed and examined the patient and verified the briseno history and physical, reviewed labs and image studies, discussed the case with the resident Dr. Cisneros and agree with the findings and care plan. Resident Activity Tracking Resident Involvement: Resident Care Provided Care Provided: Adult Hospital Medicine
[2019-09-12] MEDS ORDERED: cephALEXin 500 MG CAP PO SCH (13:00)
--- NOTE | 2019-09-13 08:39 | Electrocardiogram Report ---
Test Reason : Blood Pressure : / mmHG Vent. Rate : 059 BPM Atrial Rate : 059 BPM P-R Int : 158 ms QRS Dur : 080 ms QT Int : 384 ms P-R-T Axes : 058 024 037 degrees QTc Int : 380 ms Sinus bradycardia Cannot rule out Anterior infarct (cited on or before 11-SEP-2019) Abnormal ECG When compared with ECG of 28-AUG-2019 11:13, Questionable change in initial forces of Septal leads Confirmed by Eliel Valdez ([id number]) on 09/13/2019 8:39:07 AM Referred By: REFERRED SELF Confirmed By:Eliel Valdez
== END 2019-09-12 13:45 | disposition home or self-care (01) | DRG 603 ==
LOC: ED 12:01 → SUATTDRO 16:23 → 2E 16:23